=== PATIENT | female | born 1955 | race Caucasian/White ===

== ENCOUNTER 2017-01-12 16:52 | Emergency (ER) | payer OTHER ==
[~2017-01-12] VITALS: Wt 97.5 kg
[~2017-01-12 16:52] MED LIST: AMLODIPINE5 MG PO; ANTIVERT/2525 MG PO; ESTRADIOL PO; MEDROL DOSEPAK4 MG PO; NORET PO; SERTRALINE100 MG PO; Vicodin 5/500 505 MG PO
[2017-01-12] MEDS ORDERED: NAPROSYN500 MG PO (17:01)
== END 2017-01-12 18:23 | disposition home or self-care (01) ==
LOC: ED 16:52
DX: S90.32XA Contusion of left foot, initial encounter (principal); R03.0 Elevated blood-pressure reading, without diagnosis of hypertension; F17.200 Nicotine dependence, unspecified, uncomplicated; W01.0XXA Fall on same level from slipping, tripping and stumbling without subsequent striking against object, initial encounter; Y93.89 Activity, other specified; Y92.89 Other specified places as the place of occurrence of the external cause; Y99.8 Other external cause status

== ENCOUNTER → 2017-08-21 | Outpatient (CLI) | payer OTHER ==
[~2017-08-21] MED LIST changes: +NAPROSYN500 MG PO
[2017-08-21 11:11] LABS: BASO # 0.1 10*3/uL (0.0-0.1); BASO % 0.7 % (0.0-1.0); EOS # 0.2 10*3/uL (0.0-0.4); EOS % 2.1 % (1.0-4.0); HEMATOCRIT 50.5 % (37.0-47.0); HEMOGLOBIN 16.2 g/dl (12.0-16.0); LYMPH # 4.2 10*3/uL (1.3-4.4); MEAN CELL VOLUME 94.2 fl (81.0-99.0); MEAN CORPUSCULAR HGB 30.2 pg (27.0-31.0); MEAN CORPUSCULAR HGB CONC 32.1 g/dl (33.0-37.0); MEAN PLATELET VOLUME 10.9 fl (9.6-12.3); MONO # 0.6 10*3/uL (0.1-1.0); MONO % 6.7 % (3.0-9.0); NEUT # 4.3 10*3/uL (2.3-7.9); NEUT % 45.1 % (47.0-73.0); PLATELET COUNT AUTOMATED 314 10*3/uL (130-400); RED BLOOD COUNT 5.36 10*6/uL (4.10-5.10); RED CELL DISTRI WIDTH 13.8 % (0-14.5); WHITE BLOOD COUNT 9.4 10*3/uL (4.8-10.8)
[2017-08-21 11:43] LABS: ALBUMIN 3.4 gm/dl (3.1-4.5); BUN 10 mg/dl (7-24); CHLORIDE 106 mmol/L (98-107); POTASSIUM 3.7 mmol/L (3.5-5.1); SODIUM 138 mmol/L (136-145)
[2017-08-21 11:46] LABS: ALKALINE PHOSPHATASE 120 U/L (45-117); CHOLESTEROL 210 mg/dL (<200); CREATININE 0.72 mg/dL (0.55-1.02); HDL CHOLESTEROL 43 mg/dl (40-60); LDL CHOLESTEROL 136 mg/dL (9-159); SGOT/AST 45 IU/L (3-35); SGPT/ALT 88 U/L (12-78); TOTAL PROTEIN 8.1 gm/dL (6.4-8.2); TRIGLYCERIDES 157 mg/dl (<150); VLDL CHOLESTEROL 31 mg/dL (6-40)
== END | disposition home or self-care (01) ==
LOC: LAB 10:11
PROVIDERS: Nurse Practitioner Family
DX: E78.4 Other hyperlipidemia (principal); F32.9 Major depressive disorder, single episode, unspecified; K76.9 Liver disease, unspecified; R53.83 Other fatigue

== ENCOUNTER → 2017-09-01 | Outpatient (CLI) | payer OTHER | END | disposition home or self-care (01) | LOC: US 06:00 | DX: K76.0 Fatty (change of) liver, not elsewhere classified (principal) ==

== ENCOUNTER → 2017-10-11 | Outpatient (CLI) | payer OTHER | END | disposition home or self-care (01) | LOC: ORTHO 01:23 | DX: M25.511 Pain in right shoulder (principal) ==

== ENCOUNTER 2020-06-20 02:50 | Inpatient (IN) | payer OTHER ==
[~2020-06-20] VITALS: Ht 170.1 cm; Wt 123.6 kg
[2020-06-20 03:37] LABS: HEMATOCRIT 48.8 % (37.0-47.0); MEAN CELL VOLUME 95.3 fl (81.0-99.0); MEAN CORPUSCULAR HGB 29.7 pg (27.0-31.0); MEAN CORPUSCULAR HGB CONC 31.1 g/dl (33.0-37.0); MEAN PLATELET VOLUME 10.5 fl (9.6-12.3); PLATELET COUNT AUTOMATED 297 10*3/uL (130-400); RED BLOOD COUNT 5.12 10*6/uL (4.10-5.10); RED CELL DISTRI WIDTH 14.2 % (0-14.5); WHITE BLOOD COUNT 11.7 10*3/uL (4.8-10.8)
[2020-06-20 03:51] LABS: INTERNATIONAL NORM RATIO 0.9 (2.0-3.5)
[2020-06-20 04:00] LABS: ALBUMIN 3.5 gm/dl (3.1-4.5); ALKALINE PHOSPHATASE 116 U/L (45-117); BUN 14 mg/dl (7-24); CHLORIDE 108 mmol/L (98-107); CREATININE 0.92 mg/dL (0.55-1.02); POTASSIUM 4.2 mmol/L (3.5-5.1); SGOT/AST 12 IU/L (3-35); SGPT/ALT 20 U/L (12-78); SODIUM 141 mmol/L (136-145); TOTAL PROTEIN 7.7 gm/dL (6.4-8.2)
[2020-06-20 04:03] LABS: ATYPICAL LYMPHS 2 % (0-0); BASOPHILS 1 % (0-1); TOTAL CELLS COUNTED 100 #CELLS
[2020-06-20 04:04] LABS: OVALOCYTES FEW; PLATELET SUFFICIENCY NORMAL (NORMAL)
[2020-06-20 04:06] LABS: ETHYL ALCOHOL < 3.0 mg/dl (<3); TROPONIN I < 0.015 ng/ml (<0.045)
[2020-06-20 05:39] VITALS: BP 169/91
[2020-06-20] MEDS ORDERED: TRINTELLIX20 MG PO (05:45)
[2020-06-20] MEDS ORDERED: ASPIRIN ADULT L81 M1 PO (05:57)
[2020-06-20 06:09] LABS: ABG BASE EXCESS -2.5 mmol/L (-2.0-2.0); ARTERIAL BLOOD GAS PH 7.387 (7.35-7.45); ARTERIAL BLOOD GAS PO2 67.2 (80-90)
[2020-06-20] MEDS ORDERED: METAMUCIL0.4 G1 PO (06:12)
[2020-06-20] MEDS ORDERED: VENT7GM INH (06:15)
[2020-06-20 06:54] VITALS: BP 144/88
[2020-06-20 08:00] VITALS: BP 153/84
[2020-06-20 12:00] VITALS: BP 147/77
[2020-06-20 16:00] VITALS: BP 133/69
[2020-06-20 20:00] VITALS: BP 142/71
[2020-06-21] VITALS: BP 168/86
[2020-06-21 00:40] VITALS: BP 142/80
[2020-06-21 05:57] LABS: BASO % 0.2 % (0.0-1.0); EOS # 0.1 10*3/uL (0.0-0.4); EOS % 0.3 % (1.0-4.0); HEMATOCRIT 45.7 % (37.0-47.0); LYMPH # 2.2 10*3/uL (1.3-4.4); LYMPH % 12.2 % (27.0-41.0); MEAN CORPUSCULAR HGB 29.9 pg (27.0-31.0); MEAN CORPUSCULAR HGB CONC 31.5 g/dl (33.0-37.0); MEAN PLATELET VOLUME 10.7 fl (9.6-12.3); MONO # 0.9 10*3/uL (0.1-1.0); MONO % 5.1 % (3.0-9.0); NEUT # 14.5 10*3/uL (2.3-7.9); NEUT % 81.5 % (47.0-73.0); PLATELET COUNT AUTOMATED 304 10*3/uL (130-400); RED BLOOD COUNT 4.81 10*6/uL (4.10-5.10); RED CELL DISTRI WIDTH 14.6 % (0-14.5); WHITE BLOOD COUNT 17.7 10*3/uL (4.8-10.8)
[2020-06-21 06:01] LABS: ALBUMIN 3.2 gm/dl (3.1-4.5); ALKALINE PHOSPHATASE 96 U/L (45-117); BUN 15 mg/dl (7-24); CHLORIDE 109 mmol/L (98-107); CREATININE 0.72 mg/dL (0.55-1.02); FREE T4 0.89 ng/dl (0.76-1.46); POTASSIUM 4.5 mmol/L (3.5-5.1); SGOT/AST 14 IU/L (3-35); SGPT/ALT 20 U/L (12-78); SODIUM 141 mmol/L (136-145); TOTAL PROTEIN 7.4 gm/dL (6.4-8.2)
[2020-06-21 06:06] LABS: THYROID STIM HORMONE (HS) 0.456 uIU/ml (0.358-4.75)
[2020-06-21 08:00] VITALS: BP 146/78
[2020-06-21 12:00] VITALS: BP 116/74
[2020-06-21 16:00] VITALS: BP 134/60
[2020-06-21 20:00] VITALS: BP 134/86
[2020-06-22] VITALS: BP 130/77
[2020-06-22 08:00] VITALS: BP 143/60
[2020-06-22 12:00] VITALS: BP 135/61
[2020-06-22] MEDS ORDERED: PREDNISONE10 MG PO (14:16)
[2020-06-22] MEDS ORDERED: LEVOFLOXACIN750 M2 PO (14:16)
[2020-06-22 16:00] VITALS: BP 148/67
== END 2020-06-22 18:31 | disposition home or self-care (01) | DRG 189 ==
LOC: ED 02:50 → 5E 04:47 → EDHOLD 04:47 → 5E 04:57
PROVIDERS: Emergency Medicine; Internal Medicine; ADMIT Internal Medicine; ATTEND Internal Medicine
DX: J96.01 Acute respiratory failure with hypoxia (principal); J44.1 Chronic obstructive pulmonary disease with (acute) exacerbation; J44.0 Chronic obstructive pulmonary disease with (acute) lower respiratory infection; Z68.41 Body mass index [BMI] 40.0-44.9, adult; R73.9 Hyperglycemia, unspecified; F32.9 Major depressive disorder, single episode, unspecified; J20.9 Acute bronchitis, unspecified; I10 Essential (primary) hypertension; F17.210 Nicotine dependence, cigarettes, uncomplicated; I45.10 Unspecified right bundle-branch block; D72.829 Elevated white blood cell count, unspecified; E66.01 Morbid (severe) obesity due to excess calories; E87.8 Other disorders of electrolyte and fluid balance, not elsewhere classified; Z71.6 Tobacco abuse counseling; Z90.49 Acquired absence of other specified parts of digestive tract; Z79.82 Long term (current) use of aspirin; Z79.899 Other long term (current) drug therapy; Z90.710 Acquired absence of both cervix and uterus

== ENCOUNTER 2020-07-14 09:17 | Inpatient (IN) | payer OTHER ==
[~2020-07-14] VITALS: Ht 170.1 cm; Wt 113.4 kg
[~2020-07-14 09:17] MED LIST changes: +ASPIRIN ADULT L81 M1 PO; +LEVOFLOXACIN750 M2 PO; +METAMUCIL0.4 G1 PO; +PREDNISONE10 MG PO; +TRINTELLIX20 MG PO; +VENT7GM INH
[2020-07-14 09:32] VITALS: BP 169/93
[2020-07-14 09:46] VITALS: BP 169/93
[2020-07-14 09:56] LABS: HEMATOCRIT 44.7 % (37.0-47.0); MEAN CELL VOLUME 94.7 fl (81.0-99.0); MEAN CORPUSCULAR HGB 30.1 pg (27.0-31.0); MEAN CORPUSCULAR HGB CONC 31.8 g/dl (33.0-37.0); MEAN PLATELET VOLUME 10.1 fl (9.6-12.3); PLATELET COUNT AUTOMATED 324 10*3/uL (130-400); RED BLOOD COUNT 4.72 10*6/uL (4.10-5.10); RED CELL DISTRI WIDTH 14.2 % (0-14.5); WHITE BLOOD COUNT 9.9 10*3/uL (4.8-10.8)
[2020-07-14 10:06] LABS: ACT PARTIAL THROMBO TIME 24.8 SECONDS (20.0-32.1); INTERNATIONAL NORM RATIO 0.9 (2.0-3.5)
[2020-07-14 10:15] LABS: ALBUMIN 3.3 gm/dl (3.1-4.5); ALKALINE PHOSPHATASE 104 U/L (45-117); BUN 9 mg/dl (7-24); CHLORIDE 109 mmol/L (98-107); CREATININE 0.67 mg/dL (0.55-1.02); LIPASE 78 U/L (73-393); POTASSIUM 3.9 mmol/L (3.5-5.1); SGOT/AST 8 IU/L (3-35); SGPT/ALT 20 U/L (12-78); SODIUM 140 mmol/L (136-145); TOTAL PROTEIN 7.3 gm/dL (6.4-8.2)
[2020-07-14 10:16] LABS: TROPONIN I < 0.015 ng/ml (<0.045)
[2020-07-14 10:26] LABS: ATYPICAL LYMPHS 1 % (0-0); PLATELET SUFFICIENCY NORMAL (NORMAL); POLYCHROMASIA SLIGHT; TOTAL CELLS COUNTED 100 #CELLS
[2020-07-14 17:41] VITALS: BP 146/60
[2020-07-15 03:37] VITALS: BP 129/51
[2020-07-15 06:00] LABS: BUN 9 mg/dl (7-24); CHLORIDE 110 mmol/L (98-107); CREATININE 0.65 mg/dL (0.55-1.02); POTASSIUM 4.1 mmol/L (3.5-5.1); SODIUM 141 mmol/L (136-145)
[2020-07-15 06:13] LABS: BASO % 0.2 % (0.0-1.0); HEMATOCRIT 44.7 % (37.0-47.0); LYMPH # 1.7 10*3/uL (1.3-4.4); LYMPH % 13.1 % (27.0-41.0); MEAN CELL VOLUME 96.5 fl (81.0-99.0); MEAN CORPUSCULAR HGB 29.8 pg (27.0-31.0); MEAN CORPUSCULAR HGB CONC 30.9 g/dl (33.0-37.0); MEAN PLATELET VOLUME 10.8 fl (9.6-12.3); MONO # 0.4 10*3/uL (0.1-1.0); NEUT # 10.8 10*3/uL (2.3-7.9); NEUT % 83.1 % (47.0-73.0); PLATELET COUNT AUTOMATED 344 10*3/uL (130-400); RED BLOOD COUNT 4.63 10*6/uL (4.10-5.10); RED CELL DISTRI WIDTH 14.8 % (0-14.5)
[2020-07-15 08:00] VITALS: BP 123/93
[2020-07-15 12:00] VITALS: BP 125/60
[2020-07-15 16:00] VITALS: BP 126/55
[2020-07-15 20:00] VITALS: BP 128/66
[2020-07-16] VITALS: BP 127/57
[2020-07-16 06:50] LABS: BASO % 0.1 % (0.0-1.0); EOS % 0.1 % (1.0-4.0); HEMATOCRIT 46.4 % (37.0-47.0); LYMPH # 2.6 10*3/uL (1.3-4.4); LYMPH % 16.2 % (27.0-41.0); MEAN CELL VOLUME 98.3 fl (81.0-99.0); MEAN CORPUSCULAR HGB 30.1 pg (27.0-31.0); MEAN CORPUSCULAR HGB CONC 30.6 g/dl (33.0-37.0); MEAN PLATELET VOLUME 10.4 fl (9.6-12.3); MONO # 0.7 10*3/uL (0.1-1.0); MONO % 4.5 % (3.0-9.0); NEUT # 12.6 10*3/uL (2.3-7.9); NEUT % 78.3 % (47.0-73.0); PLATELET COUNT AUTOMATED 357 10*3/uL (130-400); RED BLOOD COUNT 4.72 10*6/uL (4.10-5.10); RED CELL DISTRI WIDTH 14.7 % (0-14.5); WHITE BLOOD COUNT 16.1 10*3/uL (4.8-10.8)
[2020-07-16 07:08] LABS: BUN 15 mg/dl (7-24); CHLORIDE 109 mmol/L (98-107); CREATININE 0.78 mg/dL (0.55-1.02); POTASSIUM 4.9 mmol/L (3.5-5.1); SODIUM 142 mmol/L (136-145)
[2020-07-16 08:00] VITALS: BP 145/61
[2020-07-16 12:00] VITALS: BP 155/64
[2020-07-16 16:00] VITALS: BP 128/63
[2020-07-16 20:00] VITALS: BP 142/58
[2020-07-17] VITALS: BP 156/74
[2020-07-17 08:00] VITALS: BP 151/73
[2020-07-17 16:00] VITALS: BP 132/62
[2020-07-17 20:00] VITALS: BP 148/69
[2020-07-18] VITALS: BP 155/86
[2020-07-18 08:00] VITALS: BP 143/79
[2020-07-18 12:00] VITALS: BP 161/72
[2020-07-18] MEDS ORDERED: QVAR REDIHALE10.6 G1 INH (13:01)
[2020-07-18] MEDS ORDERED: OMNICEF300 MG PO (13:01)
[2020-07-18] MEDS ORDERED: TRINTELLIX20 MG PO ×2 (13:01→13:02)
[2020-07-18] MEDS ORDERED: LISINOPRIL10 M1 PO (13:01)
[2020-07-18] MEDS ORDERED: PREDNISONE10 MG PO (13:01)
[2020-07-18] MEDS ORDERED: ASPIRIN ADULT L81 M1 PO (13:01)
[2020-07-18] MEDS ORDERED: ATORVASTATIN CA40 M1 PO (13:01)
== END 2020-07-18 14:00 | disposition home or self-care (01) | DRG 189 ==
LOC: ED 09:17 → 5E 11:28 → EDHOLD 11:28 → 5E 07-15 07:12
PROVIDERS: Emergency Medicine; Internal Medicine; ADMIT Family Medicine; ATTEND Family Medicine
PROC: 4A02XM4 Measurement of Cardiac Total Activity, External Approach (ICD-10-PCS; principal; 2020-07-17)
PROC: 3E073KZ Introduction of Other Diagnostic Substance into Coronary Artery, Percutaneous Approach (ICD-10-PCS; 2020-07-17)
DX: J96.01 Acute respiratory failure with hypoxia (principal); I21.A1 Myocardial infarction type 2; J44.1 Chronic obstructive pulmonary disease with (acute) exacerbation; I10 Essential (primary) hypertension; F32.9 Major depressive disorder, single episode, unspecified; E87.2 Acidosis; E66.01 Morbid (severe) obesity due to excess calories; F17.210 Nicotine dependence, cigarettes, uncomplicated; D72.10 Eosinophilia, unspecified; E87.8 Other disorders of electrolyte and fluid balance, not elsewhere classified; E78.5 Hyperlipidemia, unspecified; E11.65 Type 2 diabetes mellitus with hyperglycemia; Z88.1 Allergy status to other antibiotic agents; Z90.710 Acquired absence of both cervix and uterus; Z90.49 Acquired absence of other specified parts of digestive tract; Z71.6 Tobacco abuse counseling; Z68.39 Body mass index [BMI] 39.0-39.9, adult

== ENCOUNTER → 2022-11-03 | Day surgery (SDC) | payer MEDICARE ==
[~2022-11-03] VITALS: Ht 170.1 cm; Wt 113.4 kg
[~2022-11-03] MED LIST changes: +ATORVASTATIN CA40 M1 PO; +LISINOPRIL10 M1 PO; +OMNICEF300 MG PO; +QVAR REDIHALE10.6 G1 INH
[2022-11-03 08:57] VITALS: BP 154/71
[2022-11-03 09:37] VITALS: BP 114/95
[2022-11-03 09:52] VITALS: BP 107/87
[2022-11-03 10:03] VITALS: BP 125/73
[2022-11-04 13:07] LABS: ACID FAST SPEC PROCESSING Concentration (.)
== END ==
LOC: SDC 10-19 08:00
PROVIDERS: ATTEND Internal Medicine Critical Care Medicine
DX: R05.3 Chronic cough (principal); J98.8 Other specified respiratory disorders; J45.30 Mild persistent asthma, uncomplicated; J96.11 Chronic respiratory failure with hypoxia; J47.9 Bronchiectasis, uncomplicated; Z86.16 Personal history of COVID-19; Z99.81 Dependence on supplemental oxygen; Z87.891 Personal history of nicotine dependence; Z79.899 Other long term (current) drug therapy

== ENCOUNTER → 2024-12-31 | Outpatient (CLI) | payer MEDICARE | END | disposition home or self-care (01) | LOC: CARD 12:46 | PROVIDERS: ATTEND Physician Assistant | DX: I45.2 Bifascicular block (principal); Z51.81 Encounter for therapeutic drug level monitoring ==